=== PATIENT | male | born 1980 | race Caucasian/White ===

== ENCOUNTER → 2019-04-11 | Day surgery (SDC) | payer OTHER ==
[~2019-04-11] MED LIST: LIDOCAINE 1% INJ-PF (10 MG/ML) 30 ML SDV ONE
--- NOTE | 2019-04-11 13:18 | RADIOLOGY REPORT (SQ) ---
EXAM DESCRIPTION: ARTHRO SHOULDER INJECTION; FLUORO/NEEDLE PLACEMENT COMPLETED DATE/TIME: 04/11/2019 10:38 am REASON FOR STUDY: RIGHT SHOULDER PAIN (M25.511) M25.511 PAIN IN RIGHT SHOULDER COMPARISON: None. FLUOROSCOPY TIME: 11 seconds 1 images saved to PACS. LIMITATIONS: None. PROCEDURE: Procedure, risks, benefits and alternatives explained to patient who then gave written co nsent. The right shoulder was marked and a time out was called for correct procedure verification. P osterior entry site marked using fluoroscopic guidance. Shoulder prepped and draped using sterile te chnique. Local anesthesia achieved using 1% lidocaine injection. Hypodermic needle introduced into the joint space under direct fluoroscopic visualization. Non-ionic contrast instilled to confirm intr a-articular position. Dilute gadolinium solution then injected. Needle removed and entry site covere d with sterile bandage. No immediate complications noted. TECHNIQUE: Digital images acquired during fluoroscopy and stored on PACS. Patient immediately take n to the MR suite for additional imaging. INJECTION LOCATION: Right posterior shoulder CONTRAST TYPE AND AMOUNT: 1 mL Omnipaque, 9 mL dilute ProHance. IMPRESSION: SUCCESSFUL NEEDLE PLACEMENT AND INJECTION FOR RIGHT SHOULDER MR ARTHROGRAM USING POSTERI OR APPROACH. COMMENT: NONE Quality ID 145: Final reports for procedures using fluoroscopy that document radiation exposure marycarmen rinku, or exposure time and number of fluorographic images (if radiation exposure indices are not avail able) TECHNICAL DOCUMENTATION: JOB ID: [id number] [employer]- All Rights Reserved Reading location - IP/workstation name: [email or web address] [id number]
--- NOTE | 2019-04-11 13:18 | RADIOLOGY REPORT (SQ) ---
EXAM DESCRIPTION: ARTHRO SHOULDER INJECTION; FLUORO/NEEDLE PLACEMENT COMPLETED DATE/TIME: 04/11/2019 10:38 am REASON FOR STUDY: RIGHT SHOULDER PAIN (M25.511) M25.511 PAIN IN RIGHT SHOULDER COMPARISON: None. FLUOROSCOPY TIME: 11 seconds 1 images saved to PACS. LIMITATIONS: None. PROCEDURE: Procedure, risks, benefits and alternatives explained to patient who then gave written co nsent. The right shoulder was marked and a time out was called for correct procedure verification. P osterior entry site marked using fluoroscopic guidance. Shoulder prepped and draped using sterile te chnique. Local anesthesia achieved using 1% lidocaine injection. Hypodermic needle introduced into the joint space under direct fluoroscopic visualization. Non-ionic contrast instilled to confirm intr a-articular position. Dilute gadolinium solution then injected. Needle removed and entry site covere d with sterile bandage. No immediate complications noted. TECHNIQUE: Digital images acquired during fluoroscopy and stored on PACS. Patient immediately take n to the MR suite for additional imaging. INJECTION LOCATION: Right posterior shoulder CONTRAST TYPE AND AMOUNT: 1 mL Omnipaque, 9 mL dilute ProHance. IMPRESSION: SUCCESSFUL NEEDLE PLACEMENT AND INJECTION FOR RIGHT SHOULDER MR ARTHROGRAM USING POSTERI OR APPROACH. COMMENT: NONE Quality ID 145: Final reports for procedures using fluoroscopy that document radiation exposure marycarmen rinku, or exposure time and number of fluorographic images (if radiation exposure indices are not avail able) TECHNICAL DOCUMENTATION: JOB ID: [id number] [employer] All Rights Reserved Reading location - IP/workstation name: [email or web address] [id number]
--- NOTE | 2019-04-13 12:38 | RADIOLOGY REPORT (SQ) ---
EXAM DESCRIPTION: MRI RT UPPER JOINT WITH COMPLETED DATE/TIME: 04/11/2019 11:02 am REASON FOR STUDY: RIGHT SHOULDER PAIN (M25.511) M25.511 PAIN IN RIGHT SHOULDER COMPARISON: None. TECHNIQUE: Right shoulder images acquired and stored on PACS. Oblique coronal, oblique sagittal, and axial imaging to include fat sensitive sequences as T1, water sensitive sequences as FST2/STIR, and contrast sensitive sequences as FST1. LIMITATIONS: Motion artifact. Generally mild. Moderately limiting on some sequences, however. FINDINGS: JOINT DISTENTION: Adequate. No loose bodies. BONE MARROW AND CORTEX: Normal. AC JOINT: Intact without bulky overgrowth or widening. No subacromial compromise. GLENOHUMERAL JOINT: No subluxation or dislocation or focal chondral lesions detected. ROTATOR CUFF: Tendinosis and thickening. Mild intrasubstance focal partial tear along anterior supra spinatus insertion. No full-thickness breech. No cuff muscle atrophy. LABRUM AND BICEPS LABRAL COMPLEX: Slight fraying in the anchor. Significant tear not otherwise detec susy. Biceps tendon intact. INFERIOR LABRAL COMPLEX: Intact. ADJACENT SOFT TISSUES: No regional mass or axillary adenopathy. OTHER: No other significant finding. IMPRESSION: 1. Tendinosis with focal partial thickness intrasubstance tear along supraspinatus insertion anterior ly. No full-thickness tear. 2. Labrum relatively intact. Suspect some mild fraying in the anchor. Biceps normal. TECHNICAL DOCUMENTATION: JOB ID: [id number] [employer]- All Rights Reserved Reading location - IP/workstation name: [email or web address]
== END ==
LOC: RAD 09:36 → EDSTATUS 10:00
DX: M25.511 Pain in right shoulder (principal); M75.111 Incomplete rotator cuff tear or rupture of right shoulder, not specified as traumatic
CPT/HCPCS: 73222; 77002; 23350; A9576; J3490